=== PATIENT | female | born 1990 | race African-American/Black ===

== ENCOUNTER 2017-12-05 02:29 | Emergency (ER) | payer SELFPAY ==
[~2017-12-05] VITALS: Ht 167.6 cm; Wt 71.0 kg
[~2017-12-05 02:29] MED LIST: PREN1TAB49
[2017-12-05] MEDS ORDERED: ACETAMINOPHEN 325MG TABLET PO STA (02:55)
[2017-12-05 03:18] VITALS: BP 121/69
[2017-12-05 03:40] LABS: BASOPHILS % 0.2 % (0.0-2.0); EOSINOPHILS % 0.8 % (0.0-5.0); HEMOGLOBIN. 10.6 g/dL (12.0-16.0); LYMPHOCYTES % 25.3 % (20.0-50.0); MEAN CORPUSCULAR VOLUME 78.7 fL (81.0-99.0); MEAN PLATELET VOLUME 9.9 fl (7.4-10.4); MONOCYTES % 6.4 % (2.0-8.0); NEUTROPHILS % 67.3 % (40.0-76.0); PLATELET 154 x1000/uL (130-400); RED BLOOD CELL COUNT 4.06 mill/uL (4.2-5.4); RED CELL DISTRIBUTION WIDTH 14.8 % (11.6-14.6)
[2017-12-05 03:49] LABS: CHLORIDE 109 mEq/L (98-107)
[2017-12-05 05:48] LABS: CLARITY URINE TURBID (CLEAR); COLOR URINE YELLOW (YELLOW); KETONES URINE TRACE (NEGATIVE); LEUKOCYTE ESTERASE URINE NEGATIVE (NEGATIVE); NITRITE URINE NEGATIVE (NEGATIVE); OCCULT BLOOD URINE NEGATIVE (NEGATIVE); PROTEIN URINE TRACE (NEGATIVE); SPECIFIC GRAVITY URINE 1.029 (1.005-1.030)
== END 2017-12-05 05:10 | disposition home or self-care (01) ==
LOC: ER 02:29
DX: O26.892 Other specified pregnancy related conditions, second trimester (principal); R55 Syncope and collapse; E87.6 Hypokalemia; Z3A.17 17 weeks gestation of pregnancy; Z98.890 Other specified postprocedural states
CPT/HCPCS: 36415; 76805; 80053; 81003; 83690; 85025; 85610; 86850; 86900; 99285

== ENCOUNTER 2018-02-14 21:03 | Observation (INO) | payer SELFPAY ==
[~2018-02-14] VITALS: Ht 167.6 cm; Wt 68.0 kg
[2018-02-14 21:55] LABS: CLARITY URINE CLOUDY (CLEAR); COLOR URINE DARK YELLOW (YELLOW); KETONES URINE 2+ (NEGATIVE); LEUKOCYTE ESTERASE URINE 2+ (NEGATIVE); NITRITE URINE POSITIVE (NEGATIVE); OCCULT BLOOD URINE 1+ (NEGATIVE); PROTEIN URINE 1+ (NEGATIVE); SPECIFIC GRAVITY URINE 1.024 (1.005-1.030)
[2018-02-14 23:11] LABS: *BARBITURATES SCREEN URINE NEGATIVE (NEGATIVE); *BENZODIAZEPINES SCREEN URINE NEGATIVE (NEGATIVE); CANNABINOID URINE SCREEN NEGATIVE (NEGATIVE); METHADONE URINE SCREEN NEGATIVE (NEGATIVE); OPIATES URINE SCREEN NEGATIVE (NEGATIVE)
[2018-02-14 23:16] LABS: *AMPHETAMINES SCREEN URINE PRESUMTIVE POSITIVE (NEGATIVE); *COCAINE SCREEN URINE PRESUMTIVE POSITIVE (NEGATIVE); PHENCYCLIDINE URINE SCREEN PRESUMTIVE POSITIVE (NEGATIVE)
== END 2018-02-14 21:55 | disposition home or self-care (01) ==
LOC: L&D 21:03
PROVIDERS: ADMIT Obstetrics & Gynecology; ATTEND Obstetrics & Gynecology
DX: O62.9 Abnormality of forces of labor, unspecified (principal); Z3A.22 22 weeks gestation of pregnancy
CPT/HCPCS: 80305; 80307; 80353; 81003; 83992; 99281; G0378

== ENCOUNTER 2018-03-17 05:19 | Inpatient (IN) | payer SELFPAY ==
[~2018-03-17] VITALS: Ht 167.6 cm; Wt 75.7 kg
[2018-03-17] MEDS ORDERED: CEFAZOLIN 2,000 MG in DEXT 5% WATER 100 ML IV SCH (06:15)
[2018-03-17] MEDS ORDERED: ACETAMINOPHEN 500MG TABLET PO SCH (06:15)
[2018-03-17 06:55] LABS: HEMOGLOBIN. 7.9 g/dL (12.0-16.0); MEAN CORPUSCULAR HEMOGLOBIN 22.4 pg (28.0-32.0); MEAN CORPUSCULAR VOLUME 70.4 fL (81.0-99.0); MEAN PLATELET VOLUME 10.4 fl (7.4-10.4); PLATELET 116 x1000/uL (130-400); RED BLOOD CELL COUNT 3.55 mill/uL (4.2-5.4); RED CELL DISTRIBUTION WIDTH 17.1 % (11.6-14.6)
[2018-03-17] MEDS: LACTATED RINGERS 1,000 ML IV SCH ×4 (06:57→21:30)
[2018-03-17 07:00] LABS: CLARITY URINE CLEAR (CLEAR); COLOR URINE YELLOW (YELLOW); KETONES URINE NEGATIVE (NEGATIVE); LEUKOCYTE ESTERASE URINE 3+ (NEGATIVE); NITRITE URINE NEGATIVE (NEGATIVE); OCCULT BLOOD URINE TRACE (NEGATIVE); PH URINE 7.5 (4.5-8.0); PROTEIN URINE 1+ (NEGATIVE); SPECIFIC GRAVITY URINE 1.012 (1.005-1.030)
[2018-03-17 07:12] LABS: *BARBITURATES SCREEN URINE NEGATIVE (NEGATIVE); *BENZODIAZEPINES SCREEN URINE NEGATIVE (NEGATIVE); *COCAINE SCREEN URINE NEGATIVE (NEGATIVE); CANNABINOID URINE SCREEN NEGATIVE (NEGATIVE); METHADONE URINE SCREEN NEGATIVE (NEGATIVE); OPIATES URINE SCREEN NEGATIVE (NEGATIVE)
[2018-03-17 07:32] LABS: *AMPHETAMINES SCREEN URINE PRESUMTIVE POSITIVE (NEGATIVE)
[2018-03-17 07:32] LABS: CHLORIDE 104 mEq/L (98-107)
[2018-03-17 07:33] LABS: PHENCYCLIDINE URINE SCREEN PRESUMTIVE POSITIVE (NEGATIVE)
[2018-03-17 09:48] LABS: PLATELET ESTIMATE DECREASED
[2018-03-17] MEDS: CEFAZOLIN 1000MG PREMIX 50 ML IV SCH ×2 (15:16→22:06)
[2018-03-17] MEDS ORDERED: GENTAMICIN 80MG PREMIX 100 ML IV SCH (18:45)
[2018-03-17] MEDS: ACETAMINOPHEN 325MG TABLET PO PRN (18:51)
[2018-03-17] MEDS ORDERED: GENTAMICIN SULFATE 130 MG in SODIUM CHLORIDE 0.9% 100 ML IV NR (20:00)
[2018-03-18] MEDS ORDERED: GENTAMICIN 100MG PREMIX 50 ML IV SCH (04:00)
[2018-03-18] MEDS: CEFAZOLIN 1000MG PREMIX 50 ML IV SCH ×3 (05:47→22:00)
[2018-03-18] MEDS: LACTATED RINGERS 1,000 ML IV SCH ×2 (05:47→22:15)
[2018-03-18] MEDS ORDERED: ACETAMINOPHEN 160 MG/5 ML UD CUP PO ONE (09:00)
[2018-03-18] MEDS ORDERED: CITRIC ACID/SODIUM CITRATE SOLN 30ML UDC PO SCH (09:00)
[2018-03-18] MEDS ORDERED: ACETAMINOPHEN 650MG/20.3ML UDC PO ONE (09:15)
[2018-03-18] MEDS: GENTAMICIN 120MG PREMIX 100 ML IV SCH ×2 (12:29→20:00)
[2018-03-18] MEDS: ACETAMINOPHEN 325MG TABLET PO PRN ×2 (12:38→23:33)
[2018-03-18 14:30] VITALS: BP 104/57
[2018-03-18] MEDS ORDERED: HYDROMORPHONE HCL/PF 2MG/ML CPJ IV PRN (15:15)
[2018-03-18] MEDS ORDERED: SODIUM CHLORIDE 0.9% 250 ML IV SCH (15:15)
[2018-03-18 16:00] VITALS: BP 104/57
[2018-03-18] MEDS ORDERED: POTASSIUM CHLORIDE INJ 40 MEQ in DEXT 5% WATER 500 ML IV NR (17:30)
[2018-03-18] MEDS: FERROUS SULFATE 300MG/5ML UDC PO SCH (18:08)
[2018-03-18 20:00] VITALS: BP 95/58
[2018-03-19 04:00] VITALS: BP 98/47
[2018-03-19] MEDS: GENTAMICIN 120MG PREMIX 100 ML IV SCH ×2 (04:00→12:00)
[2018-03-19] MEDS: CEFAZOLIN 1000MG PREMIX 50 ML IV SCH ×2 (06:00→14:00)
[2018-03-19 08:00] VITALS: BP 101/62
[2018-03-19] MEDS ORDERED: DOCUSATE SODIUM 250MG CAPSULE PO SCH (09:00)
[2018-03-19] MEDS ORDERED: PRENATAL VIT/FE FUMARATE/FA TABLET PO SCH (09:00)
[2018-03-19] MEDS ORDERED: ASCORBIC ACID 500 MG TABLET PO SCH (09:00)
[2018-03-19] MEDS ORDERED: LEVOFLOXACIN 500MG TABLET PO SCH (09:30)
[2018-03-19] MEDS: FERROUS SULFATE 300MG/5ML UDC PO SCH ×3 (09:34→18:22)
[2018-03-19] MEDS: ACETAMINOPHEN 325MG TABLET PO PRN ×2 (09:35→18:25)
[2018-03-19] MEDS: POTASSIUM CHLORIDE 20MEQ TABLET SR PO SCH ×2 (10:37→18:22)
[2018-03-19 12:00] VITALS: BP 97/53
[2018-03-19] MEDS ORDERED: HYDROMORPHONE HCL/PF 2MG/ML CPJ IM PRN (15:15)
[2018-03-19 15:44] LABS: HEMATOCRIT. 24.1 % (36.0-48.0); HEMOGLOBIN. 7.7 g/dL (12.0-16.0); MEAN CORPUSCULAR HEMOGLOBIN 22.3 pg (28.0-32.0); MEAN CORPUSCULAR VOLUME 69.4 fL (81.0-99.0); MEAN PLATELET VOLUME 8.8 fl (7.4-10.4); PLATELET 114 x1000/uL (130-400); RED BLOOD CELL COUNT 3.47 mill/uL (4.2-5.4); RED CELL DISTRIBUTION WIDTH 17.4 % (11.6-14.6)
[2018-03-19 16:04] LABS: CHLORIDE 105 mEq/L (98-107)
[2018-03-19 16:31] LABS: PLATELET ESTIMATE DECREASED
[2018-03-19 20:00] VITALS: BP 99/59
[2018-03-23 04:15] LABS: AMPHETAMINE CONF URINE Positive (.)
== END 2018-03-19 23:30 | disposition left against medical advice (07) | DRG 566 ==
LOC: OBSVTOIN 05:19 → L&D 05:19 → 6EST 03-18 14:28
PROVIDERS: ADMIT Obstetrics & Gynecology; ATTEND Obstetrics & Gynecology
DX: O23.03 Infections of kidney in pregnancy, third trimester (principal); D69.6 Thrombocytopenia, unspecified; F16.10 Hallucinogen abuse, uncomplicated; O99.113 Other diseases of the blood and blood-forming organs and certain disorders involving the immune mechanism complicating pregnancy, third trimester; E87.1 Hypo-osmolality and hyponatremia; O99.323 Drug use complicating pregnancy, third trimester; O76 Abnormality in fetal heart rate and rhythm complicating labor and delivery; Z53.21 Procedure and treatment not carried out due to patient leaving prior to being seen by health care provider; O99.013 Anemia complicating pregnancy, third trimester; F15.10 Other stimulant abuse, uncomplicated; D64.9 Anemia, unspecified; O36.5930 Maternal care for other known or suspected poor fetal growth, third trimester, not applicable or unspecified; E87.6 Hypokalemia; O99.283 Endocrine, nutritional and metabolic diseases complicating pregnancy, third trimester; Z3A.36 36 weeks gestation of pregnancy; O09.33 Supervision of pregnancy with insufficient antenatal care, third trimester
CPT/HCPCS: 36415; 76805; 76818; 80170; 80305; 80307; 83992; 87077; 87186; 96360; 96361; 96365; 96366; 99281; C1893; G0378; J0690; J1580; J3480; J7050; J7060; J7120

== ENCOUNTER 2020-05-17 15:40 | Emergency (ER) | payer MEDICAID ==
[~2020-05-17] VITALS: Ht 167.6 cm; Wt 66.0 kg
[2020-05-17 16:09] VITALS: BP 107/59
[2020-05-17] MEDS ORDERED: IBUPROFEN 600MG TABLET PO ONE (18:15)
== END 2020-05-17 18:38 | disposition home or self-care (01) ==
LOC: ER 16:00
DX: H60.92 Unspecified otitis externa, left ear (principal)
CPT/HCPCS: 69209; 99283

== ENCOUNTER 2023-11-07 00:35 | Emergency (ER) | payer MEDICAID ==
[~2023-11-07] VITALS: Ht 167.6 cm; Wt 66.0 kg
[2023-11-07 00:57] VITALS: BP 135/83; PULSE 78; RESP 18; TEMP 97.7; O2SAT 100
[2023-11-07] MEDS ORDERED: BO1 TP (01:42)
== END 2023-11-07 01:51 | disposition home or self-care (01) ==
LOC: ER 00:35
DX: Z00.00 Encounter for general adult medical examination without abnormal findings (principal)
CPT/HCPCS: 99282

== ENCOUNTER 2024-04-04 06:27 | Emergency (ER) | payer MEDICAID, OTHER ==
[~2024-04-04] VITALS: Ht 167.6 cm; Wt 65.1 kg
[~2024-04-04 06:27] MED LIST changes: +BO1 TP
[2024-04-04 06:41] VITALS: O2SAT 99
[2024-04-04 07:52] VITALS: TEMP 98.6
[2024-04-04] MEDS: ACETAMINOPHEN 325MG TABLET PO ONE (07:52)
[2024-04-04 10:46] VITALS: BP 112/70; PULSE 64; RESP 14; O2SAT 99
== END 2024-04-04 10:47 | disposition home or self-care (01) ==
LOC: ER 06:37
DX: M25.512 Pain in left shoulder (principal); M25.562 Pain in left knee; M79.605 Pain in left leg; F15.10 Other stimulant abuse, uncomplicated
CPT/HCPCS: 71045; 72100; 72170; 73030; 73560; 73590; 73600; 81025; 99284